=== PATIENT | female | born 1950 | race Caucasian/White ===

== ENCOUNTER 2017-03-22 08:55 | Inpatient (IN) | payer MEDICARE, OTHER ==
[2017-03-16 11:24] LABS: HEMATOCRIT 42.4 % (36.0-48.0); HEMOGLOBIN 13.9 g/dL (12.0-16.0)
--- NOTE | ~2017-03-22 | DS ---
Discharge Summary [facility] [address] [place]. [address] NAME: CARLO CRESPO : 52 STATUS : DIS IN PAT#: [id number] AGE: 66 ADM/REG DATE : 03/22/17 MR#: [id number] REPORT SERV DATE: 04/11/17 DICTATED BY: GOKUL TELLEZ II DATE: 04/10/17 REPORT STATUS : Draft TRANSCRIBED BY: EDUAR DATE: 04/10/17 Data Collection from hospitalization DISCHARGE DIAGNOSES: 1. Right greater than left lower extremity radiculopathy. 2. Multilevel stenosis with scoliosis. 3. Tobacco use. CONSULTATIONS: None. PROCEDURES PERFORMED: 1. Lumbar laminectomy and facetectomy at L3-4, L4-5, and L5-S1; posterolateral arthrodesis L2-3, L3-4, L4-5, and L5-S1; posterior segmental instrumentation, L2-S1; dorsal 2 column osteotomy at L2-3 and L3-4; use of local autograft, allograft substitute, and bone morphogenetic protein; use of microscope and stereotactic spinal imaging, 03/22/2017. 2. MRI of the lumbar spine with and without contrast, 03/25/2017. PATHOLOGY: Bone and soft tissue, lumbar spine-nonspecific degenerative changes. MEDICATIONS: Flexeril 10 mg twice a day as needed, Valium 2 mg four times a day as needed, Neurontin 400 mg three times a day, MS Contin 30 mg every 12 hours, Prilosec 20 mg daily, Roxicodone 10-20 mg every six hours as needed, Requip 2 mg at bedtime, Zoloft 50 mg at bedtime, Ultram 100 mg every six hours as needed, biotin 5000 mcg daily, Chantix 0.5 mg twice a day. CONDITION AT DISCHARGE: Stable. DISPOSITION: The patient was discharged home on a regular diet with activities as instructed. She would follow up with me, 04/18/2017. HOSPITAL COURSE: This is a 66-year-old female, who had complained of cervical and lumbar spine-related symptoms. The symptoms were located primarily in the low back and neck radiating into the bilateral lower extremities, right greater than left as well as into both shoulders with associated burning, numbness, and sharp shooting, stabbing, and tingling. She reported her pain level as a 5 on a scale of 0-10. She has right greater than left lower extremity radiculopathy and multilevel stenosis with scoliosis. Treatment options were discussed and it was elected to proceed with surgical intervention. She was admitted to the hospital at this time for further evaluation and treatment. Upon admission, she was taken to the operating room, where she underwent the above-mentioned procedure. She tolerated this well and there were no complications. On postop day one, she was evaluated by Physical Therapy. She was stable. She did complain of low back pain. Respiratory effort was normal. On postop day two, she has uncontrolled postop pain. She does have a history of high tolerance to pain medications. She also reported left anterior thigh pain. Her medications were adjusted to better manage her pain. She still had uncontrolled pain in the left lower extremity even after receiving steroids. An MRI was requested. She was encouraged to use oral pain medications. An MRI of the lumbar spine Discharge Summary [address] [address] NAME: CARLO CRESPO : 52 STATUS : DIS IN PAT#: [id number] AGE: 66 ADM/REG DATE : 03/22/17 MR#: [id number] REPORT SERV DATE: 04/11/17 DICTATED BY: GOKUL TELLEZ II DATE: 04/10/17 REPORT STATUS : Draft TRANSCRIBED BY: EDUAR DATE: 04/10/17 with and without contrast was performed. On 03/26/2017, her symptoms were improving. She still complained of a lot of left hip and knee pain. Medications were adjusted to better manage her pain. There was no significant seroma/hematoma on MRI. The next day, she remained stable. Discharge planning was performed. Her MRI had been reviewed. We encouraged her to mobilize. On 03/28/2017, her leg pain was much better. She was alert and cooperative. She had no focal deficits. Discharge instructions were given. Due to her improved and stable condition, she was discharged home with the above-stated instructions. Information collected by: Gloria Zamora I submit the above information as my discharge summary. JASVIR/EDUAR Gokul Tellez II, M.D. / [id number] CC: Scarlett Geiger II, M.D.
--- NOTE | ~2017-03-22 | OP ---
Record Of Operation [facility] [address] [place]. [address] NAME: CARLO CRESPO : 52 STATUS : ADM IN PAT#: [id number] AGE: 66 ADM/REG DATE : 03/22/17 MR#: [id number] REPORT SERV DATE: 03/28/17 DICTATED BY: GOKUL TELLEZ II DATE: 03/28/17 REPORT STATUS : Draft TRANSCRIBED BY: MODYehuda DATE: 03/28/17 DATE OF PROCEDURE: 03/22/2017 PREOPERATIVE DIAGNOSES: 1. Right greater than left lower extremity radiculopathy. 2. Multilevel stenosis with scoliosis. POSTOPERATIVE DIAGNOSES: 1. Right greater than left lower extremity radiculopathy. 2. Multilevel stenosis with scoliosis. PROCEDURES: 1. Lumbar laminectomy and facetectomy at L3-4, L4-5, L5-S1. 2. Posterolateral arthrodesis at L2-3, L3-4, L4-5, and L5-S1. 3. Posterior segmental instrumentation at L2-S1. 4. Dorsal 2 column osteotomy at L2-3 and L3-L4. 5. Use of local autograft, allograft substitute, and bone morphogenetic protein. 6. Use of the microscope and stereotactic spinal imaging. SURGEON: Gokul Tellez M.D. FLUIDS: 2200 mL LR. ESTIMATED BLOOD LOSS: 300 mL. PREOPERATIVE HISTORY: This is a friendly 66-year-old female, who reports significant back pain with radiation into the right and left buttocks and thighs. She was found to have multilevel degenerative disk disease with stenosis. We discussed the pros and cons of continuing nonoperative care versus surgery. We discussed the fact that surgery had risks. Risks discussed include, but are not limited to infection, abscess, CSF leak, failure of surgery to help decrease back pain and leg pain with small chance of stroke and . DESCRIPTION OF PROCEDURE: After informed consent was obtained, the patient was brought to the operating room at her request, general anesthesia achieved. She was placed in the prone position and the back was prepped and draped in sterile fashion. The stereotactic spinal pin was placed into the left iliac crest and the intraoperative CT scan completed. The stereotactic guidance was then used throughout the case. Next, the incision was made and the subperiosteal exposure was completed from L2-S1. The deep retractors were placed followed by dissection along the transverse processes from L2-L5 including the sacral ala. Next, the laminectomy and facetectomy were now performed at L3-4, L4-5, and L5-S1. The large hypertrophic facets were partially removed. The high-speed bur, the Kerrison rongeurs, and the curettes were now used to remove additional facet and ligamentum flavum. The dura was then well decompressed at these particular levels. There was a small 1 mm Record Of Operation [address] [address] NAME: CARLO CRESPO : 52 STATUS : ADM IN PAT#: [id number] AGE: 66 ADM/REG DATE : 03/22/17 MR#: [id number] REPORT SERV DATE: 03/28/17 DICTATED BY: GOKUL TELLEZ II DATE: 03/28/17 REPORT STATUS : Draft TRANSCRIBED BY: EDUAR DATE: 03/28/17 durotomy at L4-5 repaired primarily with Nurolon suture. A watertight closure was obtained. Next, the pedicle screws were then applied from L2-S1. A repeat CT scan confirmed acceptable placement of the implants. The rods were then assembled and final tightening performed. Next, following irrigation, we then decorticated the transverse processes of L2, L3, L4, L5, and sacral ala. Local autograft, allograft substitute, and bone morphogenetic protein were then placed along the decorticated surfaces. Also please note, prior to completion of the jayna placement, we did perform dorsal column osteotomies at L2-3 and L3-L4. The pars was resected to assist with the shortening of the 2 columns. The rods overall were then under-contoured to assist with the kyphosis correction. Next, the drain was placed followed by standard closure, and the patient was then extubated and transferred to PACU in stable condition. LEONA/EDUAR Gokul Tellez II, M.D. / [id number] CC: Scarlett Geiger II, M.D.
[~2017-03-22 08:55] MED LIST: BIOTIN PO; CHANTIX0.5 PO; Celexa; EXCEDRIN TENSI1 EACH PO; FLEX PO; MELOXICAM; MOBIC15 MG PO; NEUR100 PO; NORCO1 TAB PO; PRILO PO; REQUIP1 PO; ULTRAM50 PO; ZOL50 PO; [UNRECOGNIZED DRUG - OTHER]
[2017-03-28] MEDS ORDERED: OXYCOD PO (13:01)
[2017-03-28] MEDS ORDERED: V2 PO (13:01)
[2017-03-28] MEDS ORDERED: NEUR400 (13:01)
[2017-03-28] MEDS ORDERED: NEUR100 PO (13:02)
[2017-03-28] MEDS ORDERED: MORPHINE ER PO (13:02)
[2017-05-09] MEDS ORDERED: MOBIC15 MG PO (14:37)
[2017-05-15] MEDS ORDERED: PERCOCET 10/3251 TAB PO (09:44)
[2017-05-15] MEDS ORDERED: MSCONTIN PO (09:45)
[2017-05-15] MEDS ORDERED: V5 PO (09:45)
== END 2017-03-28 16:40 | disposition home or self-care (01) | DRG 457 ==
LOC: SDC/OF 08:55 → PACU 17:39 → 3SO 19:36
PROVIDERS: Orthopaedic Surgery
DX: M51.16 Intervertebral disc disorders with radiculopathy, lumbar region (principal); G97.41 Accidental puncture or laceration of dura during a procedure; M41.56 Other secondary scoliosis, lumbar region
CPT/HCPCS: 72158; 82962; 85014; 85018; 87641; 88304; 88311; 93005; 97110-GP; 97116-GP; 97161-GP; A9270-GY; A9577; C1713; G8978-CL-GP; G8979-CJ-GP; J0690; J0735; J1170; J1644; J2250; J2405; J2710; J3010; J3370